=== PATIENT | female | born 1995 | race Two or more races ===

== ENCOUNTER 2023-04-09 21:52 | Inpatient (IN) | payer OTHER ==
[~2023-04-09] VITALS: Ht 154.9 cm; Wt 74.4 kg
[2023-04-09] MEDS ORDERED: PRENATAL 19 TA1 EAC2 PO (22:26)
== END 2023-04-11 11:20 | disposition home or self-care (01) | DRG 807 ==
LOC: LDR 21:52 → OB/GYN 21:52
PROVIDERS: ADMIT Obstetrics & Gynecology Gynecology; ATTEND Obstetrics & Gynecology Gynecology
PROC: 10E0XZZ Delivery of Products of Conception, External Approach (ICD-10-PCS; principal; 2023-04-09)
PROC: 0KQM0ZZ Repair Perineum Muscle, Open Approach (ICD-10-PCS; 2023-04-09)
PROC: 4A1HXCZ Monitoring of Products of Conception, Cardiac Rate, External Approach (ICD-10-PCS; 2023-04-09)
DX: O70.1 Second degree perineal laceration during delivery (principal); Z37.0 Single live birth; Z3A.37 37 weeks gestation of pregnancy; Z20.822 Contact with and (suspected) exposure to COVID-19